=== PATIENT | male | born 1945 | race Caucasian/White ===

== ENCOUNTER 2018-05-09 18:14 | Emergency (ER) | payer MEDICARE ==
[~2018-05-09] VITALS: Ht 170.2 cm; Wt 80.3 kg
[~2018-05-09 18:14] MED LIST: AMLODIPINE BESYL5 MG PO; ASPIRIN81 MG PO; ATORVASTATIN CA20 MG PO; BENADRYL25 M1 PO; CARBIDOPA-LEVO1 EACH PO; CLOPIDOGREL75 MG PO; DORZOLAMIDE-TIM10 ML OP; DOXAZOSIN MESYLA2 MG PO; DRIMINATE50 MG; LABETALOL HCL100 MG PO; LEVOTHYROXINE50 MCG PO; LUMIGAN2.5 M1 OP; OMEPRAZOLE40 MG PO; ROPINIROLE HCL1 MG PO; SINEMET 25-1001 EACH PO
[2018-05-09 19:47] LABS: BASOPHILS % 0.3 % (0.0-1.0); EOSINOPHILS # (AUTO) 0.2 (0.0-0.4); EOSINOPHILS % 2.8 % (0.0-6.0); HEMATOCRIT 42.7 % (38.2-49.6); HEMOGLOBIN 13.9 g/dL (14.0-18.0); LYMPHOCYTES # (AUTO) 1.3 (1.0-3.2); LYMPHOCYTES % 21.1 % (18.0-39.1); MEAN CORPUSCULAR HGB CONC 32.6 g/dL (31-35); MONOCYTES # (AUTO) 0.5 (0.2-0.8); MONOCYTES % 8.7 % (4.4-11.3); NEUTROPHILS % 66.9 % (38.7-80.0); PLATELET COUNT 214 x10e3/uL (140-360); RED CELL DISTRIBUTION WIDTH 12.4 % (11.7-14.4)
[2018-05-09 19:48] LABS: BILIRUBIN,URINE NEGATIVE (NEGATIVE); CLARITY,URINE CLEAR (CLEAR); COLOR,URINE YELLOW (YELLOW); KETONES,URINE NEGATIVE (NEGATIVE); LEUKOCYTE ESTERASE ,URINE NEGATIVE (NEGATIVE); NITRITE,URINE NEGATIVE (NEGATIVE); PROTEIN,URINE DIPSTICK NEGATIVE (NEGATIVE); URINE UROBILINOGEN 0.2 mg/dL (0.2 - 1)
[2018-05-09 20:00] LABS: BACTERIA,URINE FEW /HPF
[2018-05-09 20:06] LABS: ALBUMIN 3.8 g/dL (3.5-5.0); ALBUMIN/GLOBULIN RATIO 1.1 (0.8-2.0); ALKALINE PHOSPHATASE 99 IU/L (40-150); ANION GAP 13.1 mmol/L (8-16); BLOOD UREA NITROGEN 20 mg/dL (7-26); BUN/CREATININE RATIO 14 (6-25); CALCIUM 9.2 mg/dL (8.4-10.2); CARBON DIOXIDE 25 mmol/L (22-29); CHLORIDE 107 mmol/L (98-107); CREATININE, SERUM 1.48 mg/dL (0.72-1.25); EST GLOMERULAR FILTRATION RATE 47 ML/MIN (60-); GLUCOSE 92 mg/dL (74-118); POTASSIUM 4.1 mmol/L (3.5-5.1); SODIUM 141 mmol/L (136-145)
[2018-05-09 20:12] LABS: ALANINE AMINOTRANSFERASE < 6 IU/L (0-55)
--- NOTE | 2018-05-09 20:43 | Diagnostic Imaging Report ---
EXAMINATION: CHEST 2 VIEWS INDICATION: Hypertension, weakness, confusion COMPARISON: 11/26/2016 FINDINGS: PA and lateral views TUBES and LINES: None. LUNGS: Diffuse hyperinflation is stable suggestive of COPD. Ill-defined opacity in the medial right lung base may represent a summation shadow of the adjacent rib. No correlate on lateral image. Posterior eventration of the right diaphragm is stable. Vascular markings are normal. PLEURA: No pleural effusion or pneumothorax. HEART AND MEDIASTINUM: Surgical clips in the lower neck are stable. The cardiomediastinal silhouette is unremarkable. BONES AND SOFT TISSUES: Diffusely demineralized. No focal osseous lesions. Soft tissues are unremarkable. UPPER ABDOMEN: No free air under the diaphragm. IMPRESSION: Pulmonary hyperinflation suggestive of COPD. No acute process. Signed by: Dr. Juventino Mata MD on 05/09/2018 8:40 PM
[2018-05-09 21:04] LABS: CREATINE KINASE 116 IU/L (30-200)
--- NOTE | 2018-05-09 21:33 | Diagnostic Imaging Report ---
Exam: Head CT without contrast History: Weakness, confusion, hypertension. Comparison studies: The prior head CTs of 07/09/2016 and 06/17/2016 are unavailable on the PACS for comparison at the time of dictation. Technique: Axial images were obtained from the skull base to the vertex. Coronal and sagittal images reconstructed from the axial data. Dose modulation, iterative reconstruction, and/or weight based adjustment of the mA/kV was utilized to reduce the radiation dose to as low as reasonably achievable. Radiation dose: Total DLP: 921 mGy*cm. Estimated effective dose: DLP x 0.015 Intravenous contrast: None Findings: Scalp: No abnormalities. Bones: No fractures, blastic or lytic lesions. Brain sulci: Mild prominent. Ventricles: Mild compensatory dilatation. No hydrocephalus. Extra-axial spaces: No masses, no fluid collection. Parenchyma: No mass, acute hemorrhage or acute or chronic cortical vascular insults. Scattered and ill-defined mildly confluent hypodensities in the supratentorial white matter are nonspecific but most compatible with chronic microvascular ischemic changes. Sellar/suprasellar region: No abnormalities. Craniocervical junction: Patent foramen magnum. No Chiari one malformation. Incidental findings: Atherosclerotic calcifications in the carotid siphons and right intradural vertebral artery. IMPRESSION: No acute intracranial abnormalities. Chronic findings: 1. Mild generalized volume loss. 2. Nonspecific white matter changes which may reflect moderate chronic microvascular ischemic changes. Findings discussed Dr. Easley at 9:00 PM on 04/29/2018. Signed by: Dr. German De León M.D. on 05/09/2018 9:30 PM
[2018-05-09 22:22] VITALS: BP 147/89
== END 2018-05-09 22:32 | disposition home or self-care (01) ==
LOC: ER 18:14
DX: R42 Dizziness and giddiness (principal); R53.1 Weakness; G20 Parkinson's disease; I10 Essential (primary) hypertension; I25.10 Atherosclerotic heart disease of native coronary artery without angina pectoris; H54.8 Legal blindness, as defined in USA; Z86.73 Personal history of transient ischemic attack (TIA), and cerebral infarction without residual deficits; Z85.850 Personal history of malignant neoplasm of thyroid
CPT/HCPCS: 36415; 70450; 71046; 80053; 81001; 82550; 82553; 84484; 85025; 93005; 99284